=== PATIENT | male | born 1955 | race Caucasian/White ===

== ENCOUNTER 2020-09-17 00:21 | Inpatient (IN) | payer OTHER, MEDICARE, SELFPAY ==
[2020-09-17] VITALS (11 sets, daily range): BP systolic 113–176; BP diastolic 54–85; PULSE 82–120; RESP 15–18; TEMP 36.9–39.4; O2SAT 90–96; BMI 29.8; BMI 29.6
--- NOTE | 2020-09-17 00:27 | RAD_ITS ---
STUDY: X-RAY - LEFT HAND REASON FOR EXAM: Male, 65 years old. pain TECHNIQUE: 3 view(s) of the hand. COMPARISON: None. FINDINGS: Normal radiocarpal articulation. Normal distal radioulnar joint. Normal visualized carpal bones. Normal carpal articulations There is degenerative arthrosis of the carpometacarpal (CMC) articulation of the thumb. Normal second through fifth carpometacarpal joints. Normal metacarpi. There is degenerative arthrosis of the metacarpophalangeal (MCP) joints. There is degenerative arthrosis of the interphalangeal joint of the thumb with articular joint space narrowing. Normal proximal and distal phalanges of the thumb. Normal metacarpophalangeal joints of the second through fifth fingers. Normal proximal and distal interphalangeal joints of the second through fifth fingers. Normal phalanges of the second through fifth fingers. The soft tissue structures are unremarkable. RAD/Hand Min 3 Views IMPRESSION: Mild degenerative joint disease as described. No acute fracture or subluxation. Electronically Signed: Sandra Albarran MD at 2:05 EDT , Service support ,
--- NOTE | 2020-09-17 00:31 | ED.DCSUM_ITS ---
History of Present Illness Chief Complaint: Cellulitis Informant: Patient Onset: Days Context: Gradual Onset Timing: Continuous Current Severity: Moderate Maximum Severity: Severe Narrative: Patient is a 65-year-old male history of hypertension and smoking who presents to the emergency department with left hand pain. Patient states last week, he had some areas that were biopsied by dermatology. He states he had been recovering well. Over the past few days, he states that he is having increasing pain and redness in the left hand. He states that tonight, he noticed redness of his arm and pain to his axilla. He is admitted to [facility]. He denies chest pain. He denies shortness of breath. He states he unroofed it and there was serous fluid that came out but no gross purulence. Prior similar symptoms: No Recent Illness/Hospitalization: No Past Medical History - Allergies and Home Meds Allergies/Adverse Reactions: Allergies lisinopril Adverse Reaction (Verified 09/17/20 00:24) Other Primary Care Physician: Kris Greco MD [Primary Care Provider] - Prior records reviewed: Yes Past Medical History: - - Hypertension, hyperlipidemia Surgical History: noncontributory Smoking Status: Current every day smoker Review of Systems General: Reports: Fever. Denies: Chills, Sweats Eyes: Denies: Visual changes - bilaterally, Diplopia ENT: Denies: Rhinorrhea, Sore throat Cardiovascular: Denies: Chest pain, Palpitations Respiratory: Denies: Dyspnea, Cough, Dyspnea on exertion Gastrointestinal: Reports: Nausea. Denies: Abdominal pain, Vomiting, Diarrhea, Melena, Hematochezia Genitourinary: Denies: Dysuria, Hematuria, Frequency Musculoskeletal: Reports: Myalgias. Denies: Back pain, Extremity Pain Skin: Denies: Rash, Wounds Neurological: Denies: Headache, Weakness, Numbness Physical Exam Vital Signs/Narrative: Vital Signs Temp Pulse Resp BP Pulse Ox 09/17/20 00:21 99.4 F H 105 H 18 176/84 H 95 Inital Vital Signs reviewed: Yes General: Well nourished, Well developed, No Acute Distress Head: Normocephalic, Atraumatic Eyes: Perrl, EOMI ENT: Moist mucous membranes, No rhinorrhea Neck: Supple, Nontender Cardiovascular: Regular rate, Regular rhythm, No murmurs Respiratory: No distress, CTA bilaterally, Chest nontender Abdomen: Soft, Nontender, Nondistended, Normal bowel sounds Back: Nontender, Normal Inspection Extremities: Tenderness - Patient has tenderness at the biopsy site on the dorsum of the left hand. He has diffuse edema. There is lymphangitic streak from the dorsum of the hand up into his left axilla. There is scant fluid but no purulence. Skin: Normal color, No rash Neurological: Alert, Oriented x3, Cranial nerves II-XII grossly intact, Normal Strength, Normal Sensation Psychological: Normal affect, Normal Mood Diagnostic/Tx/Re-eval Abnormal Lab Results 09/17/20 09/17/20 09/17/20 00:42 00:42 00:42 WBC 19.3 H RBC 4.69 Hgb 15.2 Hct 43.4 MCV 92.5 MCH 32.4 H MCHC 35.0 RDW Std Deviation 40.6 RDW Coeff of Williams 12.0 Plt Count 243 MPV 9.8 Immature Gran % (Auto) 0.300 Neut % (Auto) 73.8 H Lymph % (Auto) 16.1 L [place] % (Auto) 6.3 Eos % (Auto) 3.1 Baso % (Auto) 0.4 Absolute Neuts (auto) 14.3 H Absolute Lymphs (auto) 3.11 Nucleated RBC % 0 Sodium 137 Potassium 3.9 Chloride 105 Carbon Dioxide 24.0 Anion Gap 8 BUN 8 Creatinine 0.75 Estim Creat Clear Calc 74.01 Est GFR (MDRD) Af Amer 134 Est GFR (MDRD) Non-Af 111 BUN/Creatinine Ratio 10.7 Glucose 113 H Lactic Acid 1.9 Calcium 9.1 Total Bilirubin 0.60 AST 21 ALT 26 Alkaline Phosphatase 119 H Total Protein 7.5 Albumin 4.2 Globulin 3.3 Albumin/Globulin Ratio 1.3 - Medical Decision Making The patient presents with left hand edema, cellulitis, lymphangitic streaking up into his axilla there is some scant drainage that is now purulent from the hand. IV was established. Sepsis work-up was pursued. The patient does have leukocytosis. Blood cultures were obtained. Lactic acid and kidney function were unremarkable. I did obtain plain films of the hand. There is soft tissue swelling without air. There is no fracture dislocation. Patient was covered with broad-spectrum antibiotics. At this point given the significant lym phangitic streak, I do feel he would benefit from admission. Impression 1. Left hand cellulitis with lymphangitic streak 2. Sepsis ED Disposition - Plan for ED Patient: Referrals: Kris Greco MD [Primary Care Provider] -
[2020-09-17] MEDS: Acetaminophen 500 MG Tablet 1000 MG PO (00:42)
[2020-09-17] MEDS: Morphine 4 MG/ML Syringe IV (00:42)
[2020-09-17] MEDS: Ondansetron 4 MG/2 ML Vial IV (00:42)
[2020-09-17] MEDS: 0.9% Normal Saline 1,000 ML 1000 ML IV (00:42)
[2020-09-17 00:53] LABS: Absolute Lymphocyte Count 3.11 X10^3/uL (0.83-4.51); Absolute Neutrophil Count 14.3 X10^3/uL (2.0-7.7); Basophil# 0.07 X10^3/uL; Basophil% 0.4 % (0-1); Eosinophils% 3.1 % (0-5); Hematocrit 43.4 % (40-54); Hemoglobin 15.2 g/dL (13.0-16.5); Lymphocyte # 3.11 X10^3/ul (4.0); Lymphocyte % 16.1 % (19-41); Mean Corpuscular Hgb 32.4 pg (27.0-32.0); Mean Corpuscular Volume 92.5 fL (80-94); Mean Platelet Vol. 9.8 fl (6.2-12.0); Monocyte# 1.21 X10^3/uL; Monocyte% 6.3 % (0-10); NRBC Flagged by Analyzer 0 % (0-5); Neutrophil # 14.27 X10^3/uL (2.7-7.7); Neutrophil % 73.8 % (47-70); Platelet Count 243 K/mm3 (150-450); RBC Distribution Width SD 40.6 fl (35.1-43.9); Red Blood Count 4.69 M/mm3 (4.6-6.2); White Blood Count 19.3 K/mm3 (4.4-11.0)
[2020-09-17 01:10] LABS: ALB/GLOB Ratio 1.3 RATIO (0.9-2.4); AST(SGOT) 21 U/L (15-37); Alanine Aminotransfer ALT/SGPT 26 U/L (16-61); Albumin, Serum 4.2 g/dL (3.2-5.0); Alkaline Phosphatase 119 U/L (45-117); Anion Gap 8 (5-15); BUN 8 mg/dL (7-18); BUN/Creat Ratio 10.7 RATIO (10-20); Calcium,Total 9.1 mg/dL (8.5-10.1); Chloride 105 mmol/L (98-107); Creatinine, Serum 0.75 mg/dL (0.70-1.30); EST Glomerular Filtration Rate 111 mL/min (>60); Est Glom Filt Rate - Afr Amer 134 mL/min (>60); Estimated Creatinine Clearance 74.01 ml/min; Globulin 3.3 g/dL (2.2-4.2); Glucose 113 mg/dL (74-106); Potassium 3.9 mmol/L (3.5-5.1); Protein, Total 7.5 g/dL (6.4-8.2); Sodium Level 137 mmol/L (136-145)
[2020-09-17 01:17] LABS: Lactic Acid 1.9 mmol/L (0.4-1.9)
--- NOTE | 2020-09-17 02:39 | HP.PCM_ITS ---
Problem List (1) Sepsis Status: Acute History of Present Illness Date of Admission: 09/17/20 Chief Complaint: Swelling of LEFT hand The patient is a 65 year old M with a significant history of hypertension; hyperlipidemia and non-Hodgkin's lymphoma status post chemotherapy who presents emergency department with swelling of his left hand. Patient had multiple cryotherapy of skin cancer site 4 days ago. He also had removal of a skin cancer at a dose on of his left hand. The next day he developed itching. This was followed with swelling and pain which has been getting progressively worse. He tried Epson salt with no real relief. He noticed some oozing from the surgical site. The pain in his left hand extend to his entire left upper extremity; and into his left armpit. Past Medical History Medical History: Medical History (Last Reviewed 09/17/20 @ 04:[address] Chad Villa MD) Hypertension I10 Allergies lisinopril Adverse Reaction (Verified 09/17/20 00:24) Other Home Medications: Ambulatory Orders Medication Instructions Recorded Amlodipine [Norvasc] 10 mg PO DAILY 09/17/20 Atorvastatin Calcium [Lipitor] 20 mg PO DAILY 09/17/20 Losartan Potassium 100 mg PO DAILY 09/17/20 Omeprazole 20 mg PO DAILY 09/17/20 Surgical History: - - Discectomy Smoking Status: Current every day smoker Tobacco Use: Cigarettes Alcohol: Occasional - *Family History Maternal History Items: Diabetes, - - His mother is still living and is age 91. Paternal History Items: Pulmonary Disease Review of Systems Constitutional: Denies: Chills, Fever, Weight Change HEENT: Denies: Head Aches, Sinus Congestion, Sinus Drainage Cardiovascular: Denies: Chest Pain, Palpitations Respiratory: Denies: Cough, Shortness of breath at rest, Sputum production Gastrointestinal: Denies: Abdominal Pain, Nausea, Vomiting Genitourinary: Denies: Dysuria Musculoskeletal: Reports: Hand Pain. Denies: Back Pain, Neck Pain Skin: Denies: Rash, Wounds Neurological: Denies: Numbness, Tingling, Focal weakness Psychiatric: Denies: Anxiety, Depression, Homicidal Ideations, Suicidal I deations Hematologic/ Lymphatic: Denies: Easy Bruising, Easy Bleeding VTE Information - Inpt Only VTE Present on Admission: No VTE Mechan Device Prophylaxis: None VTE Pharm Prophylaxis ordered?: Yes Patient Problems: Active and Suspected Problems (Last Updated 09/17/20 @ 03:[address] Chad Villa MD) Sepsis (Acute) - Physical Exam Vitals/I&O's: Vital Signs Temp Pulse Resp BP Pulse Ox 98.5 F 97 15 155/83 H 96 09/17/20 02:15 09/17/20 02:15 09/17/20 02:15 09/17/20 02:15 09/17/20 02:15 Oxygen Delivery Method Room Air Weight: 94.4 kg Body Mass Index (BMI) 29.8 Intake and Output for Last 24 Hours 09/15/20 09/16/20 09/17/20 23:59 23:59 23:59 Intake Total 1111 Balance 1111 General: Alert, Oriented x3, Cooperative HEENT: Atraumatic, PERRLA, EOMI, Normocephalic Neck: Supple, No JVD, Negative Carotid Bruits Lungs: Clear to auscultation, Normal air movement Cardiovascular: Normal S1, Normal S2, No murmurs, Tachycardic Abdomen: Bowel Sounds Present, Soft, Non Tender Extremities: No edema, Capillary Refill Less than 3 Seconds, Edema - Right hand, Tenderness - Right hand Skin: - - Dorsum of right hand with ulcer; swelling and tenderness. Lymphangitic streaking to armpit of right hand. Musculoskeletal: Tenderness - Right hand Neurological: Cranial nerves II-XII grossly intact Psych/Mental Status: Normal Affect, Appropriate Laboratory Results 09/17/20 00:42: WBC 19.3 H, RBC 4.69, Hgb 15.2, Hct 43.4, MCV 92.5, MCH 32.4 H, MCHC 35.0, RDW Std Deviation 40.6, RDW Coeff of Williams 12.0, Plt Count 243, MPV 9.8, Immature Gran % (Auto) 0.300, Neut % (Auto) 73.8 H, Lymph % (Auto) 16.1 L, [place] % (Auto) 6.3, Eos % (Auto) 3.1, Baso % (Auto) 0.4, Absolute Neuts (auto) 14.3 H, Absolute Lymphs (auto) 3.11, Nucleated RBC % 0 09/17/20 00:42: Sodium 137, Potassium 3.9, Chloride 105, Carbon Dioxide 24.0, Anion Gap 8, BUN 8, Creatinine 0.75, Estim Creat Clear Calc 74.01, Est GFR (MDRD) Af Amer 134, Est GFR (MDRD) Non-Af 111, BUN/Creatinine Ratio 10.7, Glucose 113 H, Calcium 9.1, Total Bilirubin 0.60, AST 21, ALT 26, Alkaline Phosphatase 119 H, Total Protein 7.5, Albumin 4.2, Globulin 3.3, Albumin/Globul in Ratio 1.3 09/17/20 00:42: Lactic Acid 1.9 Current Medications Vancomycin HCl 1,500 mg/ (Sodium Chloride) 530 mls @ 250 mls/hr IV X1 ONE Stop: 09/17/20 02:52 Last Admin: 09/17/20 02:15 Dose: 250 mls/hr Documented by: Assessment/Plan All Active Problems (Last Updated 09/17/20 @ 03:[address] Chad Villa MD) Sepsis (Acute) The patient is a 65 year old M with a significant history of hypertension; hyperlipidemia and non-Hodgkin's lymphoma status post chemotherapy who presents emergency department with swelling and pain of his left hand; lymphangitic streaking after removal of skin cancer from hand; and was found to have tachycardia and leukocytosis on presentation. Sepsis secondary cellulitis of left hand. SIRS criteria: Heart rate of more than 90; white count of 19,300. Lactic acid is 1.9. Blood culture x2 ordered at the emergency department; follow Patient is able to flex and extend fingers of left hand at this time. Hand x-ray with no acute fracture or subluxation. Was started on vancomycin and Unasyn at emergency department; continued Trend CBC and BMP. Elevated alkaline phosphatase Patient with mild elevated alkaline phosphatase of 119. Trend CMP. Hypertension Blood pressure is not within goal Amlodipine and losartan continued PRN Hydralazine ordered Trend blood pressure and adjust blood pressure medications. GERD Pepcid continued Hyperlipidemia Lipitor continued DVT Prophylaxis Subcutaneous Lovenox ordered
--- NOTE | 2020-09-17 03:24 | PCM.RX.CS ---
Consult Pharmacy has been consulted to manage selected antiobiotic: Vancomycin Type of Consult: New start Suspected Infection: Sepsis, Skin/Soft tissue Prior Doses of Antibiotics Received/Current Regimen: Medications Vancomycin HCl (Vancomycin) 1,000 mg in 200 mls @ 200 mls/hr IV Q12H SHIRA Discontinued Medications Vancomycin HCl 1,500 mg/ (Sodium Chloride) 530 mls @ 250 mls/hr IV X1 ONE Stop: 09/17/20 02:52 Last Admin: 09/17/20 02:15 Dose: 250 mls/hr Labs: Sodium 137 mmol/L (136-145) 09/17/20 00:42 Potassium 3.9 mmol/L (3.5-5.1) 09/17/20 00:42 Chloride 105 mmol/L (98-107) 09/17/20 00:42 Carbon Dioxide 24.0 mmol/L (21.0-32.0) 09/17/20 00:42 Anion Gap 8 (5-15) 09/17/20 00:42 BUN 8 mg/dL (7-18) 09/17/20 00:42 Creatinine 0.75 mg/dL (0.70-1.30) 09/17/20 00:42 Est GFR (MDRD) Af Amer 134 mL/min (>60) 09/17/20 00:42 Est GFR (MDRD) Non-Af 111 mL/min (>60) 09/17/20 00:42 BUN/Creatinine Ratio 10.7 RATIO (10-20) 09/17/20 00:42 Glucose 113 mg/dL (74-106) H 09/17/20 00:42 Weight used for dosin.7 kg Estimated Creatinine Clearance: 74 Goal Trough: 10-15 mcg/mL Pharmacy Plan for Drug Dosing: Pharmacy Service will continue to monitor and adjust dosing as required. Follow-Up Labs: Trough Vancomycin Labs to be done on [date and time ordered]: 09/18/20 @1330
[2020-09-17] MEDS: Acetaminophen 325 MG Tablet 650 MG PO (08:45)
[2020-09-17] MEDS: Losartan Potassium 100 MG Tablet PO (08:58)
[2020-09-17] MEDS: amLODIPine 10 MG Tablet PO (08:58)
[2020-09-17] MEDS: Pantoprazole Sodium 20 MG Tablet PO (08:58)
--- NOTE | 2020-09-17 11:30 | CASEMGMT ---
RN NAN Assessment: Face to Face with patient for initial transition planning/care coordination assessment. RN CM introduced self and role at [facility], pt voices understanding and consents to assessment. Pt is sitting up in bed in no distress. Pt is A/Ox4 and answers all questions appropriately at this time. Care providers, pharmacy, and demographics verified/updated. Admitting Dx:sepsis secondary to cellulitis PCP: Specialists: , onc Preferred Pharmacy: [facility] Insurance: MMO Prescription Benefit:yes Living Will/DPOA: Pt denies having a LW/DPOA and declines information regarding this. LNOK: sister Claudine López, dtr Fabiana Brito Living Arrangements:Pt lives alone in a ground level apt with no steps to enter. Pt states no concerns at home. Pt is I in ADL's. Transportation: Pt drives self and has no concerns regarding transportation. DME/HHC/SNF: Pt states he has a cane at home but does not use. Pt denies having any previous HHC or SNF stays. 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 Pt states no concerns with going home at time of dc. Pt states no further concerns/needs. CM to follow for any further dc planning/needs. Advised pt to aks for CM if any further questions/concerns/needs arise, voices understanding. Pt goal: Home Plan: Home with family support.
--- NOTE | 2020-09-17 13:39 | CASEMGMT ---
According to O website, the following facilities are in network: [facility], [place], [facility], [facility], [facility], [place], [facility] and .
--- NOTE | 2020-09-17 13:53 | PCM.HP.ID ---
Problem List (1) Sepsis Status: Acute Reason for Consult: hand infection Consulted by: Dr. Cook History of Present Illness: The patient is a 65 year old M who had cryotherapy and skin cancer removal from dorsum of L hand a few days ago. He is R handed. Developed progressive fever, chills, redness and swelling of hand tracking fdc up upper arm. No drainage from hand, can move wrist/fingers without much trouble. Came to hospital overnight, admitted on vanc/unasyn. Not any better this afternoon. Full ROS performed and neg except as noted above. - Medical History Surgical History: reviewed Allergies/Adverse Reactions: Allergies lisinopril Adverse Reaction (Verified 09/17/20 00:24) Other Home Medications: Ambulatory Orders Medication Instructions Recorded Amlodipine [Norvasc] 10 mg PO DAILY 09/17/20 Atorvastatin Calcium [Lipitor] 20 mg PO DAILY 09/17/20 Losartan Potassium 100 mg PO DAILY 09/17/20 Omeprazole 20 mg PO DAILY 09/17/20 - Social History SMOKING STATUS:: Current every day smoker Vital Signs Temp Pulse Resp BP Pulse Ox 98.8 F 100 16 115/54 L 93 09/17/20 11:57 09/17/20 11:57 09/17/20 11:57 09/17/20 11:57 09/17/20 11:57 Oxygen Flow Rate (L/min) 2 Oxygen Delivery Method Room Air Weight: 93.7 kg Body Mass Index (BMI) 29.6 Laboratory Tests Past 24 Hrs 09/17/20 09/17/20 09/17/20 00:42 00:42 00:42 WBC 19.3 H RBC 4.69 Hgb 15.2 Hct 43.4 MCV 92.5 MCH 32.4 H MCHC 35.0 RDW Std Deviation 40.6 RDW Coeff of Williams 12.0 Plt Count 243 MPV 9.8 Immature Gran % (Auto) 0.300 Neut % (Auto) 73.8 H Lymph % (Auto) 16.1 L [place] % (Auto) 6.3 Eos % (Auto) 3.1 Baso % (Auto) 0.4 Absolute Neuts (auto) 14.3 H Absolute Lymphs (auto) 3.11 Nucleated RBC % 0 Sodium 137 Potassium 3.9 Chloride 105 Carbon Dioxide 24.0 Anion Gap 8 BUN 8 Creatinine 0.75 Estim Creat Clear Calc 74.01 Est GFR (MDRD) Af Amer 134 Est GFR (MDRD) Non-Af 111 BUN/Creatinine Ratio 10.7 Glucose 113 H Lactic Acid 1.9 Calcium 9.1 Total Bilirubin 0.60 AST 21 ALT 26 Alkaline Phosphatase 119 H Total Protein 7.5 Albumin 4.2 Globulin 3.3 Albumin/Globulin Ratio 1.3 - Other Studies Radiology: [] reviewed Other Studies: [] Route of nutrition/ use of supplements: [] Nutritional Intake: [] IV Site: [] Leonardo Catheter: [] - Physical Exam General: Alert, Oriented x3, Cooperative HEENT: Atraumatic, PERRLA, EOMI Neck: Supple, No Nodes Lungs: Clear to auscultation, Normal air movement Cardiovascular: Regular rate, Regular Rhythm Abdomen: Soft, Non Tender, Non-Distended Extremities: No edema Skin: - - redness, induration, and warmth, extending from R hand to above elbow. IV Site: Peripheral, without redness Musculoskeletal: No Tenderness to Palpation of Joints or Extremities Neurological: Cranial nerves II-XII grossly intact - Assessment/Plan Antibiotics: [] Assessment/Plan: [] Active and Suspected Problems (Last Reviewed 09/17/20 @ 04:[address] Chad Villa MD) Sepsis (Acute) Sepsis due to LUE cellulitis s/p skin cancer removal - minimal drainage from surgical site, does not appear to have joint involvement on exam. Currently on vanc/unasyn. If not improved by tomorrow, will need imaging and possible surgical eval. Will follow, thank you, d/w Dr. Cook
[2020-09-17] MEDS: Vancomycin IV 1,000 MG/200 ML BAG 200 MG IV (14:17)
--- NOTE | 2020-09-17 17:57 | PCM.HOSP.N ---
Hospitalist Note She was seen and examined briefly today, I had infectious diseases see the patient today to review his antibiotic coverage. Patient's labs will be repeated tomorrow, he may need further imaging studies such as an MRI of his hand if his condition worsens. For now, infectious diseases is recommended he stay on his present antibiotic coverage.
[2020-09-17] MEDS: Atorvastatin Calcium 20 MG Tablet PO (20:27)
[2020-09-17] MEDS: 0.9% Saline Lock 10 ML Syringe IV (20:28)
[2020-09-18] MEDS: 0.9% Saline Lock 10 ML Syringe IV ×2 (00:31→22:06)
[2020-09-18] MEDS: Vancomycin IV 1,000 MG/200 ML BAG 200 MG IV ×2 (02:33→14:42)
[2020-09-18 02:41] VITALS: BP 109/65; PULSE 87; RESP 18; TEMP 36.9; O2SAT 92
[2020-09-18 06:33] LABS: Absolute Neutrophil Count 12.2 X10^3/uL (2.0-7.7); Basophil# 0.02 X10^3/uL; Basophil% 0.1 % (0-1); Eosinophils% 3.7 % (0-5); Hematocrit 40.3 % (40-54); Hemoglobin 14.1 g/dL (13.0-16.5); Mean Corpuscular Hgb 32.6 pg (27.0-32.0); Mean Corpuscular Volume 93.3 fL (80-94); Mean Platelet Vol. 9.8 fl (6.2-12.0); Monocyte# 1.14 X10^3/uL; Monocyte% 7.1 % (0-10); NRBC Flagged by Analyzer 0 % (0-5); Neutrophil # 12.19 X10^3/uL (2.7-7.7); Neutrophil % 75.8 % (47-70); Platelet Count 209 K/mm3 (150-450); RBC Distribution Width CV 12.2 % (11.6-14.6); RBC Distribution Width SD 42.1 fl (35.1-43.9); Red Blood Count 4.32 M/mm3 (4.6-6.2); White Blood Count 16.1 K/mm3 (4.4-11.0)
[2020-09-18 06:57] LABS: AST(SGOT) 13 U/L (15-37); Alanine Aminotransfer ALT/SGPT 17 U/L (16-61); Alkaline Phosphatase 88 U/L (45-117); Anion Gap 6 (5-15); BUN 9 mg/dL (7-18); BUN/Creat Ratio 12.6 RATIO (10-20); Calcium,Total 8.3 mg/dL (8.5-10.1); Chloride 107 mmol/L (98-107); Creatinine, Serum 0.72 mg/dL (0.70-1.30); EST Glomerular Filtration Rate 116 mL/min (>60); Est Glom Filt Rate - Afr Amer 141 mL/min (>60); Estimated Creatinine Clearance 74.01 ml/min; Globulin 3.1 g/dL (2.2-4.2); Glucose 117 mg/dL (74-106); Potassium 3.5 mmol/L (3.5-5.1); Protein, Total 6.1 g/dL (6.4-8.2); Sodium Level 139 mmol/L (136-145)
--- NOTE | 2020-09-18 07:58 | MRI_ITS ---
STUDY: MRI LEFT HAND REASON FOR EXAM: Swelling and redness of hand extending into arm. TECHNIQUE: Standardized fat and water weighted pulse sequences were obtained in all 3 orthogonal planes. COMPARISON: Radiographs 09/17/2020. FINDINGS: There is no bone edema of the metacarpals, proximal phalanges, visualized middle phalanges or visualized distal row carpal bones. Normal flexor and extensor tendons. There is mild arthrosis of the first carpometacarpal articulation with mild subchondral cystic change and mild chondral thinning (inversion recovery coronal images 6, 7). Normal second through fifth carpometacarpal articulations. Normal metacarpophalangeal joints. Normal proximal interphalangeal joints of the second through fifth digits and interphalangeal joint of the thumb. Normal intrinsic muscles of the hand. There is edema in the subcutis adipose space, greatest at the dorsal aspect. There is no focal fluid collection to indicate soft tissue abscess. MRI/Upper Ext/No Jt/ wo IMPRESSION: Edema in the subcutis adipose space without demonstrated soft tissue abscess. Mild arthrosis of the first carpometacarpal articulation. No demonstrated osteomyelitis. Electronically Signed: Leobardo Taylor MD at 12:41 EDT Tel , Service support ,
[2020-09-18 08:12] VITALS: BP 109/65; PULSE 70; RESP 18; TEMP 37.4; O2SAT 93
[2020-09-18] MEDS: amLODIPine 10 MG Tablet PO (09:58)
[2020-09-18] MEDS: Pantoprazole Sodium 20 MG Tablet PO (09:58)
[2020-09-18] MEDS: Losartan Potassium 100 MG Tablet PO (09:58)
[2020-09-18] MEDS: Enoxaparin 40 MG/0.4 ML Syringe SC (09:59)
--- NOTE | 2020-09-18 09:59 | VDUE_ITS ---
Reason For Study: SWELLING Left Proximal Left jugular vein is spontaneous, widely patent, phasic, with no intraluminal echogenicity noted. Left subclavian vein is spontaneous, widely patent, phasic, with no intraluminal echogenicity noted. Left Arm Left axillary vein is spontaneous, patent, phasic, competent, compressible and demonstrates augmentation. Left brachial vein is compressible. Left cephalic vein is compressible. Left basilic vein is compressible. Left Lower Arm Left radial vein is compressible. Left ulnar vein is compressible. Prelim to MS3 furnace charger. Interpretation Summary No evidence for acute deep venous thrombosis[left] upper extremity with patent and compressible cephalic and basilic veins. Ordering Physician: Roger Ace Performed By: Bradly Munoz RVJenny ?
--- NOTE | 2020-09-18 10:12 | PCM.PN.ID ---
Patient Problems: Active and Suspected Problems (Last Reviewed 09/17/20 @ 04:[address] Chad Villa MD) Sepsis (Acute) Subjective: No fever, LUE more red and swollen. - Physical Exam Vitals/I&O's: Vital Signs Temp Pulse Resp BP Pulse Ox 99.3 F H 70 18 109/65 93 09/18/20 08:12 09/18/20 08:12 09/18/20 08:12 09/18/20 08:12 09/18/20 08:12 Oxygen Flow Rate (L/min) 2 Oxygen Delivery Method Room Air Weight: 93.7 kg Body Mass Index (BMI) 29.6 Intake and Output for Last 24 Hours 09/16/20 09/17/20 09/18/20 23:59 23:59 23:59 Intake Total 2948 / 3148 1624 / 1624 Balance 2948 / 3148 1624 / 1624 General: Alert, Cooperative, No apparent distress Lungs: Clear to auscultation, Normal air movement Cardiovascular: Regular rate, Regular Rhythm Abdomen: Soft, Non Tender, Non-Distended Skin: - - Increased LUE and hand redness, swelling Laboratory Results 09/18/20 06:19: WBC 16.1 H, RBC 4.32 L, Hgb 14.1, Hct 40.3, MCV 93.3, MCH 32.6 H, MCHC 35.0, RDW Std Deviation 42.1, RDW Coeff of Williams 12.2, Plt Count 209, MPV 9.8, Immature Gran % (Auto) 0.300, Neut % (Auto) 75.8 H, Lymph % (Auto) 13.0 L, [place] % (Auto) 7.1, Eos % (Auto) 3.7, Baso % (Auto) 0.1, Absolute Neuts (auto) 12.2 H, Absolute Lymphs (auto) 2.10, Nucleated RBC % 0 09/18/20 06:19: Sodium 139, Potassium 3.5, Chloride 107, Carbon Dioxide 26.0, Anion Gap 6, BUN 9, Creatinine 0.72, Estim Creat Clear Calc 74.01, Est GFR (MDRD) Af Amer 141, Est GFR (MDRD) Non-Af 116, BUN/Creatinine Ratio 12.6, Glucose 117 H, Calcium 8.3 L, Total Bilirubin 1.00, AST 13 L, ALT 17, Alkaline Phosphatase 88, Total Protein 6.1 L, Albumin 3.0 L, Globulin 3.1, Albumin/Globulin Ratio 1.0 Current Medications Acetaminophen (Acetaminophen 325 Mg Tablet) 650 mg PO Q6H PRN PRN PRN Reason: Pain Score 1-10/Temp > 100.7 F Last Admin: 09/17/20 08:45 Dose: 650 mg Documented by: Amlodipine Besylate (Amlodipine 10 Mg Tablet) 10 mg PO DAILY [facility] Last Admin: 09/18/20 09:58 Dose: 10 mg Documented by: Atorvastatin Calcium (Atorvastatin Calcium 20 Mg Tablet) 20 mg PO DAILY@2200 [facility] Last Admin: 09/17/20 20:27 Dose: 20 mg Documented by: Enoxaparin Sodium (Enoxaparin 40 Mg/0.4 Ml Syringe) 40 mg SC DAILY [facility] Last Admin: 09/18/20 09:59 Dose: 40 mg Documented by: Vancomycin IV Pharmacy to Dose (1 ea/ Sodium Chloride) 500 mls @ 250 mls/hr IV PRN PRN; Protocol PRN Reason: Rx to Dose Vancomycin HCl (Vancomycin) 1,000 mg in 200 mls @ 200 mls/hr IV Q12H [facility] Last Infusion: 09/18/20 04:31 Dose: Infused Documented by: Cefepime HCl 2 gm/ Sodium (Chloride) 100 mls @ 200 mls/hr IV Q8 [facility] Iopamidol (Contrast Allergy Safety Check) 0 ml IV X1 [facility] Losartan Potassium (Losartan Potassium 100 Mg Tablet) 100 mg PO DAILY [facility] Last Admin: 09/18/20 09:58 Dose: 100 mg Documented by: Melatonin (Melatonin 3 Mg Tablet) 3 mg PO QHS PRN PRN PRN Reason: INSOMNIA Nicotine (Nicotine 21 Mg Patch) 21 mg TD DAILY [facility] Last Admin: 09/18/20 09:59 Dose: 21 mg Documented by: Ondansetron HCl (Ondansetron 4 Mg/2 Ml Vial) 4 mg IV Q8H PRN PRN PRN Reason: NAUSEA/VOMITING Oxycodone HCl (Oxycodone 5 Mg Tablet) 5 mg PO Q4H PRN PRN PRN Reason: Pain Score 4-5 Oxycodone HCl (Oxycodone 5 Mg Tablet) 10 mg PO Q4H PRN PRN PRN Reason: Pain Score 6-10/10 Pantoprazole Sodium (Pantoprazole Sodium 20 Mg Tablet) 20 mg PO DAILY [facility] Last Admin: 09/18/20 09:58 Dose: 20 mg Documented by: Sodium Chloride (0.9% Saline Lock 10 Ml Syringe) 10 - 40 ml IV UD PRN PRN Reason: SALINE FLUSH Last Admin: 09/18/20 00:31 Dose: 10 ml Documented by: Medical Necessity - Tobacco Use Smoking Status: Current every day smoker Tobacco Use: Cigarettes Route of nutrition/ use of supplements: [] Nutritional Intake: [] IV Site: [] Leonardo Catheter: [] - Assessment/Plan Antibiotics: [] Assessment/Plan: [] Active and Suspected Problems (Last Reviewed 09/17/20 @ 04:[address] Chad Villa MD) Sepsis (Acute) Sepsis due to LUE cellulitis s/p skin cancer removal - minimal drainage from surgical site. Currently on vanc/unasyn. Arm with spreading redness, hand more swollen. Will get LUE doppler, L hand MRI, broaden abx to vanc/cefepime. Will follow
[2020-09-18 14:05] LABS: Vancomycin, Trough Level 8.2 ug/mL (5.0-15.0)
[2020-09-18 14:15] VITALS: BP 117/62; PULSE 85; RESP 18; TEMP 37.7; O2SAT 95
--- NOTE | 2020-09-18 14:32 | PN_ITS ---
Patient Problems: Active and Suspected Problems (Last Reviewed 09/17/20 @ 04:[address] Chad Villa MD) Sepsis (Acute) Subjective: Patient was seen and examined today, he is complaining of increased swelling in his left hand-this examiner does not think it looks any different from yesterday but it is still swollen. I elected to have an MRI performed on the patient's left hand-this MRI does not show evidence of a deep abscess in the left hand. ID also ordered a duplex scan of the left arm and this was negative for any thr ombus. ID change the patient's antibiotic coverage. - Physical Exam Vitals/I&O's: Vital Signs Temp Pulse Resp BP Pulse Ox 99.3 F H 70 18 109/65 93 09/18/20 08:12 09/18/20 08:12 09/18/20 08:12 09/18/20 08:12 09/18/20 08:12 Oxygen Flow Rate (L/min) 2 Oxygen Delivery Method Room Air Weight: 93.7 kg Body Mass Index (BMI) 29.6 Intake and Output for Last 24 Hours 09/16/20 09/17/20 09/18/20 23:59 23:59 23:59 Intake Total 2948 / 3148 1624 / 1624 Balance 2948 / 3148 1624 / 1624 General: Alert, Oriented x3, Cooperative, No apparent distress, Well developed, Well nourished HEENT: Atraumatic, PERRLA, EOMI, Normocephalic Oral: Moist Mucosa Neck: Supple, No JVD, Trachea Midline, Thyroid Normal Size and Texture Lungs: Clear to auscultation, Normal air movement, No rhonchi, No wheeze Cardiovascular: Regular rate, Regular Rhythm, Normal S1, Normal S2, No murmurs, PMI Normal, No rub noted Abdomen: Bowel Sounds Present, Soft, Non Tender, Non-Distended, No hernias noted Extremities: No clubbing, No cyanosis, Capillary Refill Less than 3 Seconds, Edema - Generalized edema is noted in the patient's left hand and left forearm areas along with some redness Skin: No breakdown, - - Notes of the patient's left hand and left forearm area is noted to be present Musculoskeletal: - - Patient is only able to make a partial fist with his left hand Neurological: Cranial nerves II-XII grossly intact, Neuro grossly intact, Sensory exam intact to light touch and pain, Coordination normal Psych/Mental Status: Normal Affect, Appropriate, Alert and oriented to time, place, person, mood and affect Laboratory Results 09/18/20 06:19: WBC 16.1 H, RBC 4.32 L, Hgb 14.1, Hct 40.3, MCV 93.3, MCH 32.6 H , MCHC 35.0, RDW Std Deviation 42.1, RDW Coeff of Williams 12.2, Plt Count 209, MPV 9.8, Immature Gran % (Auto) 0.300, Neut % (Auto) 75.8 H, Lymph % (Auto) 13.0 L, [place] % (Auto) 7.1, Eos % (Auto) 3.7, Baso % (Auto) 0.1, Absolute Neuts (auto) 12.2 H, Absolute Lymphs (auto) 2.10, Nucleated RBC % 0 09/18/20 06:19: Sodium 139, Potassium 3.5, Chloride 107, Carbon Dioxide 26.0, Anion Gap 6, BUN 9, Creatinine 0.72, Estim Creat Clear Calc 74.01, Est GFR (MDRD) Af Amer 141, Est GFR (MDRD) Non-Af 116, BUN/Creatinine Ratio 12.6, Glucose 117 H, Calcium 8.3 L, Total Bilirubin 1.00, AST 13 L, ALT 17, Alkaline Phosphatase 88, Total Protein 6.1 L, Albumin 3.0 L, Globulin 3.1, Albumin/Globulin Ratio 1.0 09/18/20 13:15: Vancomycin Trough 8.2 Current Medications Acetaminophen (Acetaminophen 325 Mg Tablet) 650 mg PO Q6H PRN PRN PRN Reason: Pain Score 1-10/Temp > 100.7 F Last Admin: 09/17/20 08:45 Dose: 650 mg Documented by: Amlodipine Besylate (Amlodipine 10 Mg Tablet) 10 mg PO DAILY [facility] Last Admin: 09/18/20 09:58 Dose: 10 mg Documented by: Atorvastatin Calcium (Atorvastatin Calcium 20 Mg Tablet) 20 mg PO DAILY@2200 [facility] Last Admin: 09/17/20 20:27 Dose: 20 mg Documented by: Enoxaparin Sodium (Enoxaparin 40 Mg/0.4 Ml Syringe) 40 mg SC DAILY [facility] Last Admin: 09/18/20 09:59 Dose: 40 mg Documented by: Vancomycin IV Pharmacy to Dose (1 ea/ Sodium Chloride) 500 mls @ 250 mls/hr IV PRN PRN; Protocol PRN Reason: Rx to Dose Vancomycin HCl (Vancomycin) 1,000 mg in 200 mls @ 200 mls/hr IV Q12H [facility] Last Infusion: 09/18/20 04:31 Dose: Infused Documented by: Cefepime HCl 2 gm/ Sodium (Chloride) 100 mls @ 200 mls/hr IV Q8 [facility] Last Admin: 09/18/20 13:40 Dose: 200 mls/hr Documented by: Losartan Potassium (Losartan Potassium 100 Mg Tablet) 100 mg PO DAILY [facility] Last Admin: 09/18/20 09:58 Dose: 100 mg Documented by: Melatonin (Melatonin 3 Mg Tablet) 3 mg PO QHS PRN PRN PRN Reason: INSOMNIA Nicotine (Nicotine 21 Mg Patch) 21 mg TD DAILY [facility] Last Admin: 09/18/20 09:59 Dose: 21 mg Documented by: Ondansetron HCl (Ondansetron 4 Mg/2 Ml Vial) 4 mg IV Q8H PRN PRN PRN Reason: NAUSEA/VOMITING Oxycodone HCl (Oxycodone 5 Mg Tablet) 5 mg PO Q4H PRN PRN PRN Reason: Pain Score 4-5 Oxycodone HCl (Oxycodone 5 Mg Tablet) 10 mg PO Q4H PRN PRN PRN Reason: Pain Score 6-10/10 Pantoprazole Sodium (Pantoprazole Sodium 20 Mg Tablet) 20 mg PO DAILY [facility] Last Admin: 09/18/20 09:58 Dose: 20 mg Documented by: Sodium Chloride (0.9% Saline Lock 10 Ml Syringe) 10 - 40 ml IV UD PRN PRN Reason: SALINE FLUSH Last Admin: 09/18/20 00:31 Dose: 10 ml Documented by: Medical Necessity - Tobacco Use Smoking Status: Current every day smoker Tobacco Use: Cigarettes Assessment/Plan All Active Problems (Last Reviewed 09/17/20 @ 04:[address] Chad Villa MD) Sepsis (Acute) #1 sepsis secondary to severe cellulitis of the left hand-again ID is seeing patient and directing antibiotic coverage, blood cultures are pending #2 severe cellulitis of the left hand with extension into the left forearm #3 essential hypertension #4 hyperlipidemia #5 GERD Inpatient E&M: 72574 Subs Hosp L2
[2020-09-18] MEDS: Acetaminophen 325 MG Tablet 650 MG PO (14:47)
[2020-09-18 22:00] VITALS: BP 130/70; PULSE 76; RESP 16; TEMP 36.9; O2SAT 93
[2020-09-18] MEDS: Atorvastatin Calcium 20 MG Tablet PO (22:06)
[2020-09-19] MEDS: Vancomycin IV 1,000 MG/200 ML BAG 200 MG IV ×2 (02:02→15:50)
[2020-09-19] MEDS: Acetaminophen 325 MG Tablet 650 MG PO ×2 (02:06→16:10)
[2020-09-19 02:08] VITALS: BP 125/60; PULSE 71; RESP 16; TEMP 36.9; O2SAT 95
[2020-09-19] MEDS: 0.9% Saline Lock 10 ML Syringe IV (05:02)
[2020-09-19 06:10] LABS: Absolute Lymphocyte Count 1.85 X10^3/uL (0.83-4.51); Absolute Neutrophil Count 7.1 X10^3/uL (2.0-7.7); Basophil# 0.01 X10^3/uL; Basophil% 0.1 % (0-1); Eosinophil# 0.74 X10^3/uL; Eosinophils% 7.1 % (0-5); Hematocrit 38.1 % (40-54); Hemoglobin 13.4 g/dL (13.0-16.5); Lymphocyte # 1.85 X10^3/ul (4.0); Lymphocyte % 17.6 % (19-41); Mean Corp Hgb Conc 35.2 g/dL (32-36); Mean Corpuscular Hgb 32.8 pg (27.0-32.0); Mean Corpuscular Volume 93.4 fL (80-94); Mean Platelet Vol. 9.8 fl (6.2-12.0); Monocyte# 0.77 X10^3/uL; Monocyte% 7.3 % (0-10); NRBC Flagged by Analyzer 0 % (0-5); Neutrophil # 7.09 X10^3/uL (2.7-7.7); Neutrophil % 67.6 % (47-70); Platelet Count 202 K/mm3 (150-450); RBC Distribution Width CV 12.4 % (11.6-14.6); RBC Distribution Width SD 42.3 fl (35.1-43.9); Red Blood Count 4.08 M/mm3 (4.6-6.2); White Blood Count 10.5 K/mm3 (4.4-11.0)
[2020-09-19 06:32] LABS: Anion Gap 7 (5-15); BUN 9 mg/dL (7-18); BUN/Creat Ratio 12.9 RATIO (10-20); Calcium,Total 8.5 mg/dL (8.5-10.1); Chloride 109 mmol/L (98-107); EST Glomerular Filtration Rate 120 mL/min (>60); Est Glom Filt Rate - Afr Amer 145 mL/min (>60); Estimated Creatinine Clearance 74.01 ml/min; Glucose 156 mg/dL (74-106); Potassium 3.3 mmol/L (3.5-5.1); Sodium Level 142 mmol/L (136-145)
[2020-09-19 08:08] VITALS: BP 139/116; PULSE 62; RESP 14; TEMP 36.8; O2SAT 95
[2020-09-19 08:50] VITALS: BP 137/80; PULSE 67; RESP 16; TEMP 36.8; O2SAT 95
[2020-09-19] MEDS: Pantoprazole Sodium 20 MG Tablet PO (09:58)
[2020-09-19] MEDS: Losartan Potassium 100 MG Tablet PO (09:58)
[2020-09-19] MEDS: amLODIPine 10 MG Tablet PO (09:58)
[2020-09-19] MEDS: Enoxaparin 40 MG/0.4 ML Syringe SC (09:59)
[2020-09-19 10:17] VITALS: PULSE 62; O2SAT 95
[2020-09-19] MEDS: Potassium Chloride Oral Tablet 20 MEQ 40 MEQ PO (13:01)
--- NOTE | 2020-09-19 13:52 | PCM.PN.ID ---
Patient Problems: Active and Suspected Problems (Last Reviewed 09/17/20 @ 04:[address] Chad Villa MD) Sepsis (Acute) Subjective: Much better arm redness and swelling today. No fever, no n/v/d. - Physical Exam Vitals/I&O's: Vital Signs Temp Pulse Resp BP Pulse Ox 98.3 F 62 16 137/80 H 95 09/19/20 08:50 09/19/20 10:17 09/19/20 08:50 09/19/20 08:50 09/19/20 10:17 Oxygen Flow Rate (L/min) 2 Oxygen Delivery Method Room Air Weight: 93.7 kg Body Mass Index (BMI) 29.6 Intake and Output for Last 24 Hours 09/17/20 09/18/20 09/19/20 23:59 23:59 23:59 Intake Total 2948 / 3148 3474 / 3474 1200 / 1200 Balance 2948 / 3148 3474 / 3474 1200 / 1200 General: Alert, Cooperative, No apparent distress Lungs: Clear to auscultation, Normal air movement Cardiovascular: Regular rate, Regular Rhythm Abdomen: Soft, Non Tender, Non-Distended Skin: Rash Present - improved LUE redness and swelling, ROM better Microbiology Past 72 Hours 09/17/20 01:05 Blood Culture (Wb) - Right Forearm Blood Culture - Preliminary No growth in 48 hours. 09/17/20 00:42 Blood Culture (Wb) - Left Wrist Blood Culture - Preliminary No growth in 48 hours. Laboratory Results 09/18/20 13:15: Vancomycin Trough 8.2 09/19/20 05:44: WBC 10.5, RBC 4.08 L, Hgb 13.4, Hct 38.1 L, MCV 93.4, MCH 32.8 H, MCHC 35.2, RDW Std Deviation 42.3, RDW Coeff of Williams 12.4, Plt Count 202, MPV 9.8, Immature Gran % (Auto) 0.300, Neut % (Auto) 67.6, Lymph % (Auto) 17.6 L, [place] % (Auto) 7.3, Eos % (Auto) 7.1 H, Baso % (Auto) 0.1, Absolute Neuts (auto) 7.1, Absolute Lymphs (auto) 1.85, Nucleated RBC % 0 09/19/20 05:44: Sodium 142, Potassium 3.3 L, Chloride 109 H, Carbon Dioxide 26.0, Anion Gap 7, BUN 9, Creatinine 0.70, Estim Creat Clear Calc 74.01, Est GFR (MDRD) Af Amer 145, Est GFR (MDRD) Non-Af 120, BUN/Creatinine Ratio 12.9, Glucose 156 H, Calcium 8.5 Current Medications Acetaminophen (Acetaminophen 325 Mg Tablet) 650 mg PO Q6H PRN PRN PRN Reason: Pain Score 1-10/Temp > 100.7 F Last Admin: 09/19/20 02:06 Dose: 650 mg Documented by: Amlodipine Besylate (Amlodipine 10 Mg Tablet) 10 mg PO DAILY [facility] Last Admin: 09/19/20 09:58 Dose: 10 mg Documented by: Atorvastatin Calcium (Atorvastatin Calcium 20 Mg Tablet) 20 mg PO DAILY@2200 [facility] Last Admin: 09/18/20 22:06 Dose: 20 mg Documented by: Diphenhydramine HCl (Diphenhydramine 25 Mg Capsule) 25 mg PO TID PRN PRN PRN Reason: ITCHING Enoxaparin Sodium (Enoxaparin 40 Mg/0.4 Ml Syringe) 40 mg SC DAILY [facility] Last Admin: 09/19/20 09:59 Dose: 40 mg Documented by: Vancomycin IV Pharmacy to Dose (1 ea/ Sodium Chloride) 500 mls @ 250 mls/hr IV PRN PRN; Protocol PRN Reason: Rx to Dose Vancomycin HCl (Vancomycin) 1,000 mg in 200 mls @ 200 mls/hr IV Q12H [facility] Last Infusion: 09/19/20 03:02 Dose: Infused Documented by: Cefepime HCl 2 gm/ Sodium (Chloride) 100 mls @ 200 mls/hr IV Q8 [facility] Last Admin: 09/19/20 13:01 Dose: 200 mls/hr Documented by: Sodium Chloride () 250 mls @ 15 mls/hr IV .[id number] PRN PRN Reason: Saline Flush Last Admin: 09/19/20 05:02 Dose: 15 mls/hr Documented by: Losartan Potassium (Losartan Potassium 100 Mg Tablet) 100 mg PO DAILY [facility] Last Admin: 09/19/20 09:58 Dose: 100 mg Documented by: Melatonin (Melatonin 3 Mg Tablet) 3 mg PO QHS PRN PRN PRN Reason: INSOMNIA Nicotine (Nicotine 21 Mg Patch) 21 mg TD DAILY [facility] Last Admin: 09/19/20 09:58 Dose: 21 mg Documented by: Ondansetron HCl (Ondansetron 4 Mg/2 Ml Vial) 4 mg IV Q8H PRN PRN PRN Reason: NAUSEA/VOMITING Oxycodone HCl (Oxycodone 5 Mg Tablet) 5 mg PO Q4H PRN PRN PRN Reason: Pain Score 4-5 Oxycodone HCl (Oxycodone 5 Mg Tablet) 10 mg PO Q4H PRN PRN PRN Reason: Pain Score 6-10/10 Pantoprazole Sodium (Pantoprazole Sodium 20 Mg Tablet) 20 mg PO DAILY [facility] Last Admin: 09/19/20 09:58 Dose: 20 mg Documented by: Sodium Chloride (0.9% Saline Lock 10 Ml Syringe) 10 - 40 ml IV UD PRN PRN Reason: SALINE FLUSH Last Admin: 09/19/20 05:02 Dose: 10 ml Documented by: Medical Necessity - Tobacco Use Smoking Status: Current every day smoker Tobacco Use: Cigarettes Route of nutrition/ use of supplements: [] Nutritional Intake: [] IV Site: [] Leonardo Catheter: [] - Assessment/Plan Antibiotics: [] Assessment/Plan: [] Active and Suspected Problems (Last Reviewed 09/17/20 @ 04:[address] Chad Villa MD) Sepsis (Acute) Sepsis due to LUE cellulitis s/p skin cancer removal - minimal drainage from surgical site. Currently on vanc/cefepime, arm much better today. Doppler neg, MRI neg for abscess or deeper involvement. Wbc normal now, fever resolved. Will follow
[2020-09-19 15:00] VITALS: BP 141/64; PULSE 84; RESP 18; TEMP 37.2; O2SAT 95
--- NOTE | 2020-09-19 15:15 | PCM.PROGNOTE ---
Patient Problems: Active and Suspected Problems (Last Reviewed 09/17/20 @ 04:[address] Chad Villa MD) Sepsis (Acute) Subjective: Was seen and examined today, I think his left hand and arm swelling is improved, the patient thinks it is not. Patient's white blood cell count is normal today, he is afebrile. I talked briefly with infectious diseases about his care and they feel that he is improved on his current antibiotic coverage. Objective: General: Alert, Oriented x3, Cooperative, No apparent distress, Well developed, Well nourished HEENT: Atraumatic, PERRLA, EOMI, Normocephalic Oral: Moist Mucosa Neck: Supple, No JVD, Trachea Midline, Thyroid Normal Size and Texture Lungs: Clear to auscultation, Normal air movement, No rhonchi, No wheeze Cardiovascular: Regular rate, Regular Rhythm, Normal S1, Normal S2, No murmurs, PMI Normal, No rub noted Abdomen: Bowel Sounds Present, Soft, Non Tender, Non-Distended, No hernias noted Extremities: No clubbing, No cyanosis, Capillary Refill Less than 3 Seconds, Edema - Generalized edema is noted in the patient's left hand and left forearm areas along with some redness Skin: No breakdown, - - Notes of the patient's left hand and left forearm area is noted to be present Musculoskeletal: - - Patient is only able to make a partial fist with his left hand Neurological: Cranial nerves II-XII grossly intact, Neuro grossly intact, Sensory exam intact to light touch and pain, Coordination normal Psych/Mental Status: Normal Affect, Appropriate, Alert and oriented to time, place, person, mood and affect - Physical Exam Vitals/I&O's: Vital Signs Temp Pulse Resp BP Pulse Ox 98.3 F 62 16 137/80 H 95 09/19/20 08:50 09/19/20 10:17 09/19/20 08:50 09/19/20 08:50 09/19/20 10:17 Oxygen Flow Rate (L/min) 2 Oxygen Delivery Method Room Air Weight: 93.7 kg Body Mass Index (BMI) 29.6 Intake and Output for Last 24 Hours 09/17/20 09/18/20 09/19/20 23:59 23:59 23:59 Intake Total 2948 / 3148 3474 / 3474 1200 / 1200 Balance 2948 / 3148 5684 / 3474 1200 / 1200 Microbiology Past 72 Hours 09/17/20 01:05 Blood Culture (Wb) - Right Forearm Blood Culture - Preliminary No growth in 48 hours. 09/17/20 00:42 Blood Culture (Wb) - Left Wrist Blood Culture - Preliminary No growth in 48 hours. Laboratory Results 09/19/20 05:44: WBC 10.5, RBC 4.08 L, Hgb 13.4, Hct 38.1 L, MCV 93.4, MCH 32.8 H, MCHC 35.2, RDW Std Deviation 42.3, RDW Coeff of Williams 12.4, Plt Count 202, MPV 9.8, Immature Gran % (Auto) 0.300, Neut % (Auto) 67.6, Lymph % (Auto) 17.6 L, [place] % (Auto) 7.3, Eos % (Auto) 7.1 H, Baso % (Auto) 0.1, Absolute Neuts (auto) 7.1, Absolute Lymphs (auto) 1.85, Nucleated RBC % 0 09/19/20 05:44: Sodium 142, Potassium 3.3 L, Chloride 109 H, Carbon Dioxide 26.0, Anion Gap 7, BUN 9, Creatinine 0.70, Estim Creat Clear Calc 74.01, Est GFR (MDRD) Af Amer 145, Est GFR (MDRD) Non-Af 120, BUN/Creatinine Ratio 12.9, Glucose 156 H, Calcium 8.5 Current Medications Acetaminophen (Acetaminophen 325 Mg Tablet) 650 mg PO Q6H PRN PRN PRN Reason: Pain Score 1-10/Temp > 100.7 F Last Admin: 09/19/20 02:06 Dose: 650 mg Documented by: Amlodipine Besylate (Amlodipine 10 Mg Tablet) 10 mg PO DAILY [facility] Last Admin: 09/19/20 09:58 Dose: 10 mg Documented by: Atorvastatin Calcium (Atorvastatin Calcium 20 Mg Tablet) 20 mg PO DAILY@2200 [facility] Last Admin: 09/18/20 22:06 Dose: 20 mg Documented by: Diphenhydramine HCl (Diphenhydramine 25 Mg Capsule) 25 mg PO TID PRN PRN PRN Reason: ITCHING Enoxaparin Sodium (Enoxaparin 40 Mg/0.4 Ml Syringe) 40 mg SC DAILY [facility] Last Admin: 09/19/20 09:59 Dose: 40 mg Documented by: Vancomycin IV Pharmacy to Dose (1 ea/ Sodium Chloride) 500 mls @ 250 mls/hr IV PRN PRN; Protocol PRN Reason: Rx to Dose Vancomycin HCl (Vancomycin) 1,000 mg in 200 mls @ 200 mls/hr IV Q12H [facility] Last Infusion: 09/19/20 03:02 Dose: Infused Documented by: Cefepime HCl 2 gm/ Sodium (Chloride) 100 mls @ 200 mls/hr IV Q8 [facility] Last Admin: 09/19/20 13:01 Dose: 200 mls/hr Documented by: Sodium Chloride () 250 mls @ 15 mls/hr IV .[id number] PRN PRN Reason: Saline Flush Last Admin: 09/19/20 05:02 Dose: 15 mls/hr Documented by: Losartan Potassium (Losartan Potassium 100 Mg Tablet) 100 mg PO DAILY [facility] Last Admin: 09/19/20 09:58 Dose: 100 mg Documented by: Melatonin (Melatonin 3 Mg Tablet) 3 mg PO QHS PRN PRN PRN Reason: INSOMNIA Nicotine (Nicotine 21 Mg Patch) 21 mg TD DAILY [facility] Last Admin: 09/19/20 09:58 Dose: 21 mg Documented by: Ondansetron HCl (Ondansetron 4 Mg/2 Ml Vial) 4 mg IV Q8H PRN PRN PRN Reason: NAUSEA/VOMITING Oxycodone HCl (Oxycodone 5 Mg Tablet) 5 mg PO Q4H PRN PRN PRN Reason: Pain Score 4-5 Oxycodone HCl (Oxycodone 5 Mg Tablet) 10 mg PO Q4H PRN PRN PRN Reason: Pain Score 6-10/10 Pantoprazole Sodium (Pantoprazole Sodium 20 Mg Tablet) 20 mg PO DAILY [facility] Last Admin: 09/19/20 09:58 Dose: 20 mg Documented by: Sodium Chloride (0.9% Saline Lock 10 Ml Syringe) 10 - 40 ml IV UD PRN PRN Reason: SALINE FLUSH Last Admin: 09/19/20 05:02 Dose: 10 ml Documented by: Medical Necessity - Tobacco Use Smoking Status: Current every day smoker Tobacco Use: Cigarettes Assessment/Plan All Active Problems (Last Reviewed 09/17/20 @ 04:[address] Chad Villa MD) Sepsis (Acute) #1 sepsis secondary to severe cellulitis of the left hand-again ID is seeing patient and directing antibiotic coverage, blood cultures show no growth in 48 hours. #2 severe cellulitis of the left hand with extension into the left forearm #3 essential hypertension #4 hyperlipidemia #5 GERD Inpatient E&M: 91368 Subs Hosp L2
[2020-09-19 20:00] VITALS: BP 123/54; PULSE 72; RESP 16; TEMP 36.8; O2SAT 92
[2020-09-19] MEDS: DiphenhydrAMINE 25 MG Capsule PO (20:25)
[2020-09-19] MEDS: Atorvastatin Calcium 20 MG Tablet PO (20:26)
[2020-09-20] MEDS: Vancomycin IV 1,000 MG/200 ML BAG 200 MG IV (01:31)
[2020-09-20 02:00] VITALS: BP 112/61; PULSE 67; RESP 16; TEMP 36.8; O2SAT 94
[2020-09-20 02:43] LABS: Vancomycin, Trough Level 16.4 ug/mL (5.0-15.0)
--- NOTE | 2020-09-20 03:45 | PCM.RX.CS ---
Consult Pharmacy has been consulted to manage selected antiobiotic: Vancomycin Type of Consult: Follow-up Labs: Sodium 142 mmol/L (136-145) 09/19/20 05:44 Potassium 3.3 mmol/L (3.5-5.1) L 09/19/20 05:44 Chloride 109 mmol/L (98-107) H 09/19/20 05:44 Carbon Dioxide 26.0 mmol/L (21.0-32.0) 09/19/20 05:44 Anion Gap 7 (5-15) 09/19/20 05:44 BUN 9 mg/dL (7-18) 09/19/20 05:44 Creatinine 0.70 mg/dL (0.70-1.30) 09/19/20 05:44 Est GFR (MDRD) Af Amer 145 mL/min (>60) 09/19/20 05:44 Est GFR (MDRD) Non-Af 120 mL/min (>60) 09/19/20 05:44 BUN/Creatinine Ratio 12.9 RATIO (10-20) 09/19/20 05:44 Glucose 156 mg/dL (74-106) H 09/19/20 05:44 Vancomycin Trough 16.4 ug/mL (5.0-15.0) H 09/20/20 02:06 Microbiology: Microbiology 09/17/20 01:05 Blood Culture (Wb) - Right Forearm Blood Culture - Preliminary No growth in 48 hours. 09/17/20 00:42 Blood Culture (Wb) - Left Wrist Blood Culture - Preliminary No growth in 48 hours. Goal Trough: 10-15 mcg/mL Pharmacy Plan for Drug Dosing: Pharmacy Service will continue to monitor and adjust dosing as required. TROUGH 16.4 DRAWN AFTER DOSE STARTED REDRAW TROUGH WITH NEXT DOSE Follow-Up Labs: Trough Vancomycin Labs to be done on [date and time ordered]: 09/20 @ 3372
[2020-09-20 07:45] VITALS: BP 157/88; PULSE 65; RESP 18; TEMP 37.1; O2SAT 94
[2020-09-20] MEDS: amLODIPine 10 MG Tablet PO (07:54)
[2020-09-20] MEDS: Pantoprazole Sodium 20 MG Tablet PO (07:54)
[2020-09-20] MEDS: Enoxaparin 40 MG/0.4 ML Syringe SC (07:54)
[2020-09-20] MEDS: Losartan Potassium 100 MG Tablet PO (07:55)
--- NOTE | 2020-09-20 09:58 | PN.ID_ITS ---
Patient Problems: Active and Suspected Problems (Last Reviewed 09/17/20 @ 04:[address] Chad Villa MD) Sepsis (Acute) Subjective: much improved, no fever, no n/v/d. - Physical Exam Vitals/I&O's: Vital Signs Temp Pulse Resp BP Pulse Ox 98.8 F 65 18 157/88 H 94 09/20/20 07:45 09/20/20 07:45 09/20/20 07:45 09/20/20 07:45 09/20/20 07:45 Oxygen Flow Rate (L/min) 2 Oxygen Delivery Method Room Air Weight: 93.7 kg Body Mass Index (BMI) 29.6 Intake and Output for Last 24 Hours 09/18/20 09/19/20 09/20/20 23:59 23:59 23:59 Intake Total 3474 / 3474 2500 / 2500 1350 / 1350 Balance 3474 / 3474 2500 / 2500 1350 / 1350 General: Alert, Cooperative, No apparent distress Lungs: Clear to auscultation, Normal air movement Cardiovascular: Regular rate, Regular Rhythm Abdomen: Soft, Non Tender, Non-Distended Skin: Rash Present - much improved redness and swelling of LUE Microbiology Past 72 Hours 09/17/20 01:05 Blood Culture (Wb) - Right Forearm Blood Culture - Preliminary No growth in 48 hours. 09/17/20 00:42 Blood Culture (Wb) - Left Wrist Blood Culture - Preliminary No growth in 48 hours. Laboratory Results 09/20/20 02:06: Vancomycin Trough 16.4 H Current Medications Acetaminophen (Acetaminophen 325 Mg Tablet) 650 mg PO Q6H PRN PRN PRN Reason: Pain Score 1-10/Temp > 100.7 F Last Admin: 09/19/20 16:10 Dose: 650 mg Documented by: Amlodipine Besylate (Amlodipine 10 Mg Tablet) 10 mg PO DAILY SHIRA Last Admin: 09/20/20 07:54 Dose: 10 mg Documented by: Atorvastatin Calcium (Atorvastatin Calcium 20 Mg Tablet) 20 mg PO DAILY@2200 [facility] Last Admin: 09/19/20 20:26 Dose: 20 mg Documented by: Diphenhydramine HCl (Diphenhydramine 25 Mg Capsule) 25 mg PO TID PRN PRN PRN Reason: ITCHING Last Admin: 09/19/20 20:25 Dose: 25 mg Documented by: Enoxaparin Sodium (Enoxaparin 40 Mg/0.4 Ml Syringe) 40 mg SC DAILY [facility] Last Admin: 09/20/20 07:54 Dose: 40 mg Documented by: Vancomycin IV Pharmacy to Dose (1 ea/ Sodium Chloride) 500 mls @ 250 mls/hr IV PRN PRN; Protocol PRN Reason: Rx to Dose Vancomycin HCl (Vancomycin) 1,000 mg in 200 mls @ 200 mls/hr IV Q12H [facility] Last Infusion: 09/20/20 02:35 Dose: Infused Documented by: Cefepime HCl 2 gm/ Sodium (Chloride) 100 mls @ 200 mls/hr IV Q8 [facility] Last Infusion: 09/20/20 05:44 Dose: Infused Documented by: Sodium Chloride () 250 mls @ 15 mls/hr IV .[id number] PRN PRN Reason: Saline Flush Last Admin: 09/20/20 01:39 Dose: 15 mls/hr Documented by: Losartan Potassium (Losartan Potassium 100 Mg Tablet) 100 mg PO DAILY [facility] Last Admin: 09/20/20 07:55 Dose: 100 mg Documented by: Melatonin (Melatonin 3 Mg Tablet) 3 mg PO QHS PRN PRN PRN Reason: INSOMNIA Nicotine (Nicotine 21 Mg Patch) 21 mg TD DAILY [facility] Last Admin: 09/19/20 09:58 Dose: 21 mg Documented by: Ondansetron HCl (Ondansetron 4 Mg/2 Ml Vial) 4 mg IV Q8H PRN PRN PRN Reason: NAUSEA/VOMITING Oxycodone HCl (Oxycodone 5 Mg Tablet) 5 mg PO Q4H PRN PRN PRN Reason: Pain Score 4-5 Oxycodone HCl (Oxycodone 5 Mg Tablet) 10 mg PO Q4H PRN PRN PRN Reason: Pain Score 6-10/10 Pantoprazole Sodium (Pantoprazole Sodium 20 Mg Tablet) 20 mg PO DAILY [facility] Last Admin: 09/20/20 07:54 Dose: 20 mg Documented by: Sodium Chloride (0.9% Saline Lock 10 Ml Syringe) 10 - 40 ml IV UD PRN PRN Reason: SALINE FLUSH Last Admin: 09/19/20 05:02 Dose: 10 ml Documented by: Medical Necessity - Tobacco Use Smoking Status: Current every day smoker Tobacco Use: Cigarettes Route of nutrition/ use of supplements: [] Nutritional Intake: [] IV Site: [] Leonardo Catheter: [] - Assessment/Plan Antibiotics: [] Assessment/Plan: [] Active and Suspected Problems (Last Reviewed 09/17/20 @ 04:[address] Chad Villa MD) Sepsis (Acute) Sepsis due to LUE cellulitis s/p skin cancer removal - minimal drainage from surgical site. Currently on vanc/cefepime, arm much better today. Doppler neg, MRI neg for abscess or deeper involvement. Wbc normal now, fever resolved. Ok for home with 5 more days theodore, wrote rx. Will follow as needed, d/w Dr. Cook
[2020-09-20 10:58] VITALS: PULSE 70
[2020-09-20] MEDS: DiphenhydrAMINE 25 MG Capsule PO (11:10)
--- NOTE | 2020-09-20 13:33 | PCM.DC ---
- Discharge Diagnoses Current Active Problems: Current Active and Chronic Problems (Last Reviewed 09/17/20 @ 04:[address] Chad Villa MD) Sepsis (Acute) You will use the following diet at home:: No restrictions Your food should be the consistency of: Regular Your liquids should be the consistency of: Regular/Thin Discharge Activity: Return to Normal Activity Weight Bearing Status: Full weight bearing Allergies/Adverse Reactions: Allergies lisinopril Adverse Reaction (Verified 09/17/20 00:24) Other Medications to take at Discharge Amlodipine [Norvasc] 10 mg PO DAILY 09/17/20 Atorvastatin Calcium [Lipitor] 20 mg PO DAILY 09/17/20 Losartan Potassium 100 mg PO DAILY 09/17/20 Omeprazole 20 mg PO DAILY 09/17/20 Cefadroxil [Duricef] 1,000 mg PO BID 5 Days #20 capsule 09/20/20 Ciprofloxacin [Cipro] 500 mg PO BID #10 tab 09/20/20 The following prescriptions were given: Ciprofloxacin [Cipro] 500 mg PO BID #10 tab Transmission Status: Received by [facility]/pharmacy #[id number] Cefadroxil [Duricef] 1,000 mg PO BID 5 Days #20 capsule Transmission Status: Received by [facility]/pharmacy #[id number] Primary Care Physician: Kris Greco MD [Primary Care Provider] - Please follow up with your Primary Care Physician in: in one week Test Results: Test results from this visit will be discussed in further detail at your follow-up appointment, if applicable.
[2020-09-20 14:34] VITALS: BP 148/70; PULSE 72; RESP 18; TEMP 37.2; O2SAT 97
--- NOTE | 2020-09-21 17:27 | PCM.DC.SUM ---
Discharge Date and Diagnosis - Problem List Patient Problems: Active and Suspected Problems (Last Reviewed 09/17/20 @ 04:[address] Chad Villa MD) Sepsis (Acute) Date of Admission: 09/17/20 Date of Discharge: 09/20/20 - Primary Discharge Diagnosis Acute Problems: Active Problems (Last Reviewed 09/17/20 @ 04:[address] Chad Villa MD) #1 sepsis secondary to severe cellulitis of the left hand-secondary to recent removal of skin lesions from left hand, organism unknown #2 severe cellulitis of the left hand with extension into the left forearm secondary to recent removal of skin lesions from left hand, organism unknown #3 essential hypertension #4 hyperlipidemia #5 GERD #6 hypokalemia Hospital Course and Treatment Operations: None Procedures: None Summary of Care Provided: The patient is a 65 year old M who was seen in the emergency room at [facility] with a chief complaint of left hand pain, swelling, and redness. He recently had skin lesions taken off of his left hand and some removed by cryosurgery. He noticed increasing pain and redness in his left hand and redness and swelling traveling up his left forearm into his left axillary area a few days after his skin lesions were removed. Labs were obtained in the emergency room showed an elevated white blood cell count, patient's lactic acid was 1.9, cultures were obtained in the ER. Patient was admitted to [place] [id number] and placed on IV antibiotics, he was seen in consultation by infectious diseases, he underwent an MRI of his left hand and a venous duplex study of his left arm which showed no evidence of VTE. The MRI showed no evidence of abscess in the left hand. Patient's white blood cell count slowly decreased, his edema and redness of his left hand and left forearm and upper arm lessened but did not completely resolve. Patient's blood cultures were negative, the organism causing the cellulitis was unknown. On 09/20/2020, patient was seen and examined:General: Alert, Oriented x3, Cooperative, No apparent distress, Well developed, Well nourished HEENT: Atraumatic, PERRLA, EOMI, Normocephalic Oral: Moist Mucosa Neck: Supple, No JVD, Trachea Midline, Thyroid Normal Size and Texture Lungs: Clear to auscultation, Normal air movement, No rhonchi, No wheeze Cardiovascular: Regular rate, Regular Rhythm, Normal S1, Normal S2, No murmurs, PMI Normal, No rub noted Abdomen: Bowel Sounds Present, Soft, Non Tender, Non-Distended, No hernias noted Extremities: No clubbing, No cyanosis, Capillary Refill Less than 3 Seconds, Edema - Generalized edema is noted in the patient's left hand and left forearm areas along with some redness Skin: No breakdown, - -redness of the patient's left hand and left forearm area is noted to be present Musculoskeletal: - - Patient is only able to make a partial fist with his left hand Neurological: Cranial nerves II-XII grossly intact, Neuro grossly intact, Sensory exam intact to light touch and pain, Coordination normal Psych/Mental Status: Normal Affect, Appropriate, Alert and oriented to time, place, person, mood and affect Patient was felt to be stable for discharge home on 09/20/2020. Patient Problems: Active and Suspected Problems (Last Reviewed 09/17/20 @ 04:[address] Chad Villa MD) Sepsis (Acute) - Physical Exam Vitals/I&O's: Vital Signs Temp Pulse Resp BP Pulse Ox 98.9 F 72 18 148/70 H 97 09/20/20 14:34 09/20/20 14:34 09/20/20 14:34 09/20/20 14:34 09/20/20 14:34 Oxygen Flow Rate (L/min) 2 Oxygen Delivery Method Room Air Weight: 93.7 kg Body Mass Index (BMI) 29.6 Intake and Output for Last 24 Hours 09/19/20 09/20/20 09/21/20 23:59 23:59 23:59 Intake Total 2500 / 2500 1450 / 1450 Output Total 500 / 500 Balance 2500 / 2500 950 / 950 Microbiology Past 72 Hours 09/17/20 01:05 Blood Culture (Wb) - Right Forearm Blood Culture - Preliminary No growth in 48 hours. 09/17/20 00:42 Blood Culture (Wb) - Left Wrist Blood Culture - Preliminary No growth in 48 hours. Discharge Activity: Return to Normal Activity Weight Bearing Status: Full weight bearing Home Medications: Medications to take at Discharge Amlodipine [Norvasc] 10 mg PO DAILY 09/17/20 Atorvastatin Calcium [Lipitor] 20 mg PO DAILY 09/17/20 Losartan Potassium 100 mg PO DAILY 09/17/20 Omeprazole 20 mg PO DAILY 09/17/20 Cefadroxil [Duricef] 1,000 mg PO BID 5 Days #20 capsule 09/20/20 Ciprofloxacin [Cipro] 500 mg PO BID #10 tab 09/20/20 Following Prescriptions Were Given to Patient: Ciprofloxacin [Cipro] 500 mg PO BID #10 tab Transmission Status: Received by [facility]/pharmacy #[id number] Cefadroxil [Duricef] 1,000 mg PO BID 5 Days #20 capsule Transmission Status: Received by [facility]/pharmacy #[id number] Primary Care Physician: Kris Greco MD [Primary Care Provider] - Please follow up with your Primary Care Physician in: in one week Disposition: Home Minutes spent on discharge:: 32 Patient Condition:: Stable Medical Necessity - Tobacco Use Smoking Status: Current every day smoker Tobacco Use: Cigarettes Meaningful Use Info Meaningful Use Diagnoses (Choose all that apply): None applicable Inpatient E&M: [id number] [facility]
== END 2020-09-20 14:49 | disposition home or self-care (01) | DRG 872 ==
LOC: ED 01:09 → MS3 02:35
PROVIDERS: Admitting Provider Hospitalist; Emergency Provider Emergency Medicine; PCP Internal Medicine; Visit Provider Internal Medicine
DX: A41.9 Sepsis, unspecified organism (principal); L03.114 Cellulitis of left upper limb; I10 Essential (primary) hypertension; E78.5 Hyperlipidemia, unspecified; K21.9 Gastro-esophageal reflux disease without esophagitis; E87.6 Hypokalemia; F17.210 Nicotine dependence, cigarettes, uncomplicated; R79.89 Other specified abnormal findings of blood chemistry; Z85.828 Personal history of other malignant neoplasm of skin
CPT/HCPCS: 36415; 73130; 73218; 80048; 80053; 80202; 83605; 85025; 87040; 93971; 97802; 99285; 99406; J7030; J7040; J7050; A4216; J0295; J2405

== ENCOUNTER 2021-04-26 14:24 | Emergency (ER) | payer OTHER, SELFPAY ==
[2021-04-26 14:25] VITALS: BP 155/80; PULSE 69; RESP 16; TEMP 36.2; O2SAT 96; BMI 30.2
--- NOTE | 2021-04-26 15:09 | EX.ED.UPPERE ---
HPI History of Present Illness Chief Complaint: Upper Extremity Injury Narrative Narrative: Patient is a 66-year-old male who states yesterday he was helping a friend who had his riding lawnmower stuck in the ground. He states he pushed it from behind and a benchpress motion. He states that he did not feel pain initially but a few hours later noticed pain in his left shoulder. He states that if he is at rest the shoulder feels normal but assumes he goes to lift or move the arm he has increased pain. He denies any numbness tingling or weakness any chest pain or shortness of breath but with the difficulty moving his left arm he presents for evaluation. Patient does state he is right arm dominant [facility] Medical History Hypertension Home Medications amlodipine 10 mg PO DAILY 09/17/20 [History Last Taken 09/15/20 18:00] atorvastatin 20 mg PO DAILY 09/17/20 [History Last Taken 09/15/20 18:00] losartan 100 mg PO DAILY 09/17/20 [History Last Taken 09/16/20 21:00] omeprazole 20 mg PO DAILY 09/17/20 [History Last Taken 09/15/20 18:00] ciprofloxacin HCl 500 mg PO BID #10 tab 09/20/20 [Rx Last Taken Unknown] methocarbamol 500 mg PO Q6H PRN #40 tab 04/26/21 [Rx Last Taken Unknown] oxycodone-acetaminophen [Endocet] 1 tab PO Q6H PRN 3 Days #12 tab 04/26/21 [Rx Last Taken Unknown] Allergy/AdvReac Type Severity Reaction Status Date / Time lisinopril AdvReac Other Verified 04/26/21 14:28 Social History Smoking Status: Current every day smoker tobacco type: cigarettes ROS ROS ED Constitutional Constitutional ED: Denies chills or fever(s) ENT ENT ED: Denies sore throat Cardiovascular Cardiovascular: Denies chest pain Respiratory/Chest Respiratory/Chest: Denies cough or dyspnea Gastrointestinal Gastrointestinal: Denies abdominal pain, diarrhea, nausea or vomiting Genitourinary Genitourinary ED: Denies dysuria Musculoskeletal Musculoskeletal: Reports other Details: Positive left shoulder pain ; Denies myalgias Integumentary Denies rash Neurologic Neurologic: Denies headache(s) or paresthesias Hematologic/Lymphatic Hematologic/Lymphatic: Denies easy bleeding or easy bruising EXAM Physical Exam Const Vital Signs: 04/26/21 14:25 Temperature 97.2 F L Temperature Source Temporal Pulse Rate 69 Respiratory Rate 16 Blood Pressure 155/80 H Blood Pressure Mean 105 Pulse Ox 96 Oxygen Delivery Method Room Air Positive well nourished and well developed General Appearance ED: well developed Eyes PERRL and EOMs intact bilaterally Neck supple Resp normal respiratory effort and clear to auscultation bilaterally Cardio regular rate and regular rhythm Extremity Extremity Narrative: Left upper extremity is neurovascularly intact; AIN/PIN are intact and normal. There is no obvious bony deformity or joint effusion negative sulcus sign noted. No overlying soft tissue changes to suggest trauma or infection. Patient has pain with palpation over top the anterior aspect of the left shoulder near the supraspinatus tendon. He also has pain with extension of the left arm external rotation and abduction. Positive [place] Mike sign as well. Remainder the exam is normal Neuro oriented x3 and CN's II-XII intact bilaterally Sensorium / Orientation: alert Psych mental status grossly normal Skin no rashes or lesions noted Lesions: no lesions Rashes: no rashes Trauma: no lacerations or abrasions MDM MDM MDM Narrative Medical decision making narrative: Patient presented to the ER with pain after a benchpress type of motion. There is no report or signs of trauma no overlying soft tissue changes to suggest infection. His upper extremity is neurovascularly intact. We discussed a possible x-ray but as there is been no report or signs of trauma or signs of dislocation patient did not want this obtained. By history and exam patient has a partial tear to the supraspinatus tendon. He will be placed in a sling and given medications for symptom control and can follow-up with orthopedics to discuss need for MRI or rehab regarding his rotator cuff injury. Discharge Plan Triage Chief Complaint: Upper Extremity Injury ED Provider: Kirill Davis Dx/Rx/DC Orders Clinical Impression: Rotator cuff injury Instructions: Rotator Cuff Tendon Tear Prescriptions: New oxycodone-acetaminophen [Endocet] 5-325 mg tablet 1 tab PO Q6H PRN (Reason: pain) 3 Days Qty: 12 RF: 0 methocarbamol 500 mg tablet 500 mg PO Q6H PRN (Reason: Muscle pain/spasm) Qty: 40 RF: 0 No Action atorvastatin 20 MG tablet 20 mg PO DAILY RF: 0 amlodipine 10 MG tablet 10 mg PO DAILY RF: 0 omeprazole 20 MG capsule,delayed release(DR/EC) 20 mg PO DAILY RF: 0 losartan 100 MG tablet 100 mg PO DAILY RF: 0 ciprofloxacin HCl 500 MG tablet 500 mg PO BID Qty: 10 RF: 0 Primary Care Provider: Kris Greco Referrals: Matt Ohara MD [STAFF PHYSICIAN] - 3-5 Days (Left rotator cuff injury) Kris Greco MD [Primary Care Provider] - Disposition Disposition: Home, Self Care
[2021-04-26] MEDS: Orphenadrine 60 MG/2 ML Ampul IM (15:33)
[2021-04-26] MEDS: Ketorolac 30 MG/ML Syringe IM (15:33)
== END 2021-04-26 15:50 | disposition home or self-care (01) ==
PROVIDERS: Emergency Provider Emergency Medicine; PCP Internal Medicine
DX: S46.012A Strain of muscle(s) and tendon(s) of the rotator cuff of left shoulder, initial encounter (principal); I10 Essential (primary) hypertension; F17.210 Nicotine dependence, cigarettes, uncomplicated; Z79.899 Other long term (current) drug therapy; X50.0XXA Overexertion from strenuous movement or load, initial encounter; Y93.89 Activity, other specified; Y92.007 Garden or yard of unspecified non-institutional (private) residence as the place of occurrence of the external cause; Y99.8 Other external cause status
CPT/HCPCS: 96372; 99282